=== PATIENT | male | born 1960 | race Caucasian/White ===

== ENCOUNTER 2024-09-05 08:50 | Outpatient (RCR) | payer OTHER, BC, SELFPAY ==
--- NOTE | 2024-09-05 13:21 | HP.FCE ---
Task Lift Floor (Occasional 1-33% of Day): 15 Floor (Frequent 34-66% of Day): 7.5 Floor (Constant 67-100% of Day): 3.2 Floor PDL: Sedentary-Light Knee (Occasional 1-33% of Day): 25 Knee (Frequent 34-66% of Day): 12.5 Knee (Constant 67-100% of Day): 5.3 Knee PDL: Light Waist (Occasional 1-33% of Day): 25 Waist (Frequent 34-66% of Day): 12.5 Waist (Constant 67-100% of Day): 5.3 Waist PDL: Light Shoulder (Occasional 1-33% of Day): 15 Shoulder (Frequent 34-66% of Day): 7.5 Shoulder (Constant 67-100% of Day): 3.2 Shoulder PDL: Sedentary-Light Overhead (Occasional 1-33% of Day): 15 Overhead (Frequent 34-66% of Day): 7.5 Overhead (Constant 67-100% of Day): 3.2 Overhead PDL: Sedentary-Light Work Activity/Posture Bending: No Ablility (0% of day) Squatting: No Ablility (0% of day) Kneeling: No Ablility (0% of day) Reaching out: Frequent Ability (34-66% of day) Reaching up: Occasional Ability (1-33% of day) Sitting: Frequent Ability (34-66% of day) Walking: Occasional Ability (1-33% of day) Standing: Occasional Ability (1-33% of day) Reference Reference: Duration Sedentary Sedentary Light Light Light Medium Medium Medium Heavy Very Heavy Heavy Occasional (0-33% of day) Frequent (34-66% of day) Constant (67-100% of day) 10 # Negligible Negligible 15 # 8 # Negligible 20 # 10# Negli. 35 # 18 # 7 # 50 # 25 # 10 # 75 # 100 # >100 # 38 # 50 # >50 # 15 # 20 # >20 # Patient Information Height: 5 ft 2 in Weight:: 103 kg Hand Dominance: R BP (Medication Use/Usual Values per pt report): Pt does report use of Losartan for HTN; typical BP 140/80 Medical History Medical History Including Restrictions: Pt had multiple fractures in R ankle 02/27 as a result of a fall at work; subsequent surgical repair with hardware 02/27 and subsequent hardware removal 06/01. 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 Pt continues to ambulate with R sided limp and has standing/carrying/ambulation limitations. 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 T84.84; S82.61; S93.43 Symptoms Symptoms: Pt does report ~3 falls d/t decreased balance - does use a SPC for ambulation as needed; neuropathy in R ankle/foot; pain in R ankle; edema in R ankle; limited ROM; pt does report arthritis in R shoulder (2/10) and L thumb (2/10) Pain Pain: Reports an aching pain upon initiation of FCE; 4/10 in R ankle escalating to 6/10 with ambulation/standing/stair climbing tasks Pt does report use of Motrin daily for pain Geovanni Pain questionnaire: Work History Work History: Pt is employed by [employer] where he has worked for ~3 years; 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 Lifting requirement for current job is 50-75 lbs with pushing/pulling tasks of 100+lbs. Prior to working for [employer], pt was at a company in a similar role as the one he currently has. Behavioral Behavioral: Pt is a pleasant 64 year old male who presents with a willing attitude and good effort throughout evaluation. ADLS ADLS: Pt reports independence with ADLs and limited in iADLs; requires assist for cleaning/cooking/errands d/t difficulty standing for long periods of time and difficulty carrying things. Physical Examination Physical Examination: Physical Examination: Pt appears well, with a noted limp on RLE; not using any adaptive device at time of evaluation HR: 96 SPO2: 96% ROM: ROM: UE - WNL LE - WNL Pt does report mild (2/10) pain in R shoulder with AROM Strength: FET Peak used to measure strength R elbow flexion: 22.5lb extension: 20lb R shoulder flexion: 11lb external rotation: 14lb L elbow flexion: 42.1lb extension: 33lb L shoulder flexion: 21lb external rotation: 23lb L knee flexion: 42lb extension: 33.4lb L hip flexion: 56.8lb R knee flexion: 21lb extension: 17.4lb R hip flexion: 35.6lb HR: 102 SPO2: 97 Right Customer Engagement Analyst Strength Average: 56.66 Right Customer Engagement Analyst Strength Percentile: 0.5th Left Customer Engagement Analyst Strength Average: 73.33 Left Customer Engagement Analyst Strength Percentile: 20th Right Lateral Pinch Average: 7.66 Right Lateral Pinch Percentile: <10th Left Lateral Pinch Average: 12.00 Left Lateral Pinch Percentile: 10th Right Tripod Pinch Average: 6.66 Right Tripod Pinch Percentile: <10th Left Tripod Pinch Average: 13.33 Left Tripod Pinch Percentile: 25th Sensation: Pt denies any decreased sensation in bilateral hands/fingers Fine Motor: 9 hold peg L hand Trial 1 - 21 Trial 2 - 20 Trial 3 - 20 Average - 20.3 90th percentile 9 hold peg Right hand Trial 1 - 19.5 Trial 2 - 18.5 Trial 3 - 17.5 Average:18.5 90th Percentile Balance: BALANCE: Pt does use aide for ambulation PRN - SPC; does report ~3 falls in the past 6 month, but nothing resulting in injury per pt functional reach - 5 This represents a significant increased risk for falls according to the Functional Reach Test Non Material Handling Activities Bending: Trial of 3 - 0/3 10 x at own pace - unable to complete 10 x fast - unable to complete even with bilateral UE support, pt unable to safely reach to floor d/t limitations of R ankle Squatting: Trial of 3 - 0/3 10 x at own pace - unable to complete 10 x fast - unable to complete even with bilateral UE support, pt unable to safely achieve squatting position d/t limitations of R ankle Kneeling: Trial of 3 - 0/3 10 x at own pace - unable to complete 10 x fast - unable to complete even with bilateral UE support, pt unable to safely bring knee to floor d/t limitations of R ankle Reaching out/up: Reaching Up Trial of 3 - 3/3 10 x at own pace - able to complete with pain/facial grimacing d/t R shoulder pain 6/10; SPO2: 97 BPM: 107 10 x fast - able to complete with slight increase in speed and slight decrease in R shoulder AROM; SPO2: 97; BPM: 115 Reaching Out: Trial of 3 - 07/08 10 x at own pace - able to complete with pain/facial grimacing d/t R shoulder pain 6/10; SPO2: 97 BPM: 109 10 x fast - able to complete with slight increase in speed and slight decrease in R shoulder AROM; SPO2: 96; BPM: 112 Walking: Walking - pt reports limitations with ambulation in community; able to go to the grocery store with spouse with use of cart for bilateral UE support; During FCE, pt able to complete 1 lap in gym without AD with increased time, visible limp, and 2 rest breaks with SPC use of gait belt. Total distance 383 ft HR - 115 and SPO2 ? 97 Standing: Per pt report, able to stand ~15-20 minutes and then needs a rest break; uses cart at the grocery store During FCE, pt able to stand for ~10 minutes with SBA Sitting: Pt reports ability to sit ~1 hours sitting in standard chair; in a recliner, pt able to sit 2.5 hours During FCE, pt able to sit for 20+ minutes without needing frequent posture adjustment Climbing Stairs: Pt reports ability to climb stairs at home with step two gait pattern During FCE, able to complete 1 flight with step two gait pattern and heavy use of bilateral handrails HR - 117 SPO2 ? 96 Dynamic Occasional Lifting Capacity Floor Lift: Pt able to lift 15lbs with mod assist at gait belt d/t decreased balance; SPO2: 97%; BPM: 107 Knee Lift: Pt able to lift 25lbs with min assist at gait belt d/t decreased balance; SPO2: 97; BPM: 107 Waist Lift: Pt able to lift 25lbs with min assist at gait belt d/t decreased balance; SPO2: 97; BPM: 102 Shoulder Lift: Pt able to lift 15lbs with min assist at gait belt d/t decreased balance; SPO2: 97%; BPM: 127 Overhead Lift: Pt able to lift 15lbs with min assist at gait belt d/t decreased balance; SPO2: 97%; BPM: 127 Carrying: Pt able to carry 15lb box 23ft x 2 with CGA and increased time with significant limp noted; SPO2: 97 HR: 122 Comments: Throughout lifting portion of FCE, pt required use of gait belt with min-mod assist for safety d/t unsteadiness on feet during lifting/carrying tasks; pt did take seated rest breaks after each task
== END 2024-09-05 19:00 | disposition home or self-care (01) ==
LOC: OT 08:50
PROVIDERS: Referring Provider Student in an Organized Health Care Education/Training Program; Visit Provider Student in an Organized Health Care Education/Training Program
DX: T84.84XD Pain due to internal orthopedic prosthetic devices, implants and grafts, subsequent encounter (principal); S82.61XD Displaced fracture of lateral malleolus of right fibula, subsequent encounter for closed fracture with routine healing; S93.431D Sprain of tibiofibular ligament of right ankle, subsequent encounter
CPT/HCPCS: 97750